=== PATIENT | female | born 1945 | race Caucasian/White ===

== ENCOUNTER → 2016-11-28 | Day surgery (SDC) | payer OTHER ==
[~2016-11-28] MED LIST: ACETAMINOPHEN 1000 MG/100 ML VIAL IV ONE; BUPIVACAINE/EPINEPHRINE 0.5% 50 ML VIAL ONE; ISOSULFAN BLUE 50 MG/5 ML VIAL SQ ONE; LACTATED RINGER'S 1000 ML INJ 1,000 ML ONE; LIDOCAINE 1%/EPINEPHrine 1:100,000 SOLN 20 ML VIAL ONE; MIDAZOLAM HCL 2 MG/2 ML VIAL ONE; ONDANSETRON HCL 4 MG/2 ML VIAL IV PUSH ONE; PROPOFOL 200 MG/20 ML AMP IV ONE; ceFAZolin INJ 1,000 MG VIAL ONE
--- NOTE | 2016-11-28 16:55 | TN ---
cc: BETZY VALADEZ MD, JOSEPH D. M.D. DATE OF SURGERY 11/28/2016 DATE OF PROCEDURE 11/28/2016 PREOPERATIVE DIAGNOSIS Right-sided breast cancer lower outer quadrant. POSTOPERATIVE DIAGNOSIS Right-sided breast cancer lower outer quadrant. PROCEDURES PERFORMED 1. Injection of Lymphazurin blue dye for lymphatic mapping to identify sentinel nodes times two. 2. Right needle-localized segmental mastectomy treatment of breast cancer to obtain clear margins. 3. Identification of two sentinel nodes right axillary region ex vivo count of 5635 and number two node 352 and a third node that was slightly enlarged. None were blue. 4. Application of intraoperative radiation therapy device 4 cm device with radiologic 5) Ultrasound confirmation of adequate margins for intraoperative radiation. ANESTHESIA General. SURGEON Dr. Fishman. Health Aid surgeon Ms Tiff BERMUDEZ The CALL CENTER PROFESSIONAL was present from beginning to the end of the case assisting in all portions of the procedure. It was necessary to have this individual in the room to assist in the above surgical procedure. The surgical procedure was assisted by the CALL CENTER PROFESSIONAL. The CALL CENTER PROFESSIONAL presence was necessary throughout the case for appropriate retraction, dissection, visualization, and resection of the important anatomical structures during the surgical procedure. The CALL CENTER PROFESSIONAL was assisting throughout the entirety of the operation. The skill set of the CALL CENTER PROFESSIONAL is medically and surgically necessary to safely complete the surgical procedure. During the surgical case, the operating room lead manufacturing technician was working instrument table and passing instruments to the attending surgeon and CALL CENTER PROFESSIONAL. The CALL CENTER PROFESSIONAL was directly assisting the operating surgeon and involved in the technical aspects of the surgical case. RADIATION THERAPIST Dr. Simon. INDICATIONS This is a pleasant 71-year-old female who was found have a right-sided breast cancer. Plans were made for above. PROCEDURE DETAILS The patient taken to the operating room and placed in the supine position. After anesthesia a time-out is done. The guidewire had been previously placed by radiology. We inject blue dye into the track sylvia in the right breast in the lower outer quadrant. A hot spot is found in the right axillary region. After prepping and draping we then make a curvilinear incision in the axillary region identifying two sentinel nodes that are #1 with an ex vivo count 5635. Number two with an ex vivo count of 352. These were not blue. A third node is slightly enlarged without a count. These were sent down as right axillary nodes. We then close the skin with a 4-0 Vicryl. We then performed the segmental mastectomy to the lower outer quadrant of the right breast by making a curvilinear incision at the inferior aspect of the breast where the guidewire was coursing inferior to superior in a lateral to medial direction. We obtain clear margins circumferentially around the guidewire. This is sent down to radiology with confirmation. We then sized the cavity and felt that a 4 cm intraoperative radiation therapy device would fit nicely. A pursestring suture is used for tissue mobilization to cover the anterior aspect of the radiation device. It was then sterilely draped and then placed in to the breast cavity. Adequate margins were obtained using ultrasound to four quadrants superior, inferior, medial and lateral confirming greater than 1 cm margins circumferentially for radiation therapy. The patient was then left in the operating room with Dr. iSmon applying the intraoperative radiation therapy. See the documentation. After the radiation therapy is completed the pursestring suture is removed, the catheter is removed, the area was irrigated. Hemostasis is double checked. We then close the deep layer with a 3-0 Vicryl and skin was reapproximated with 4-0 Vicryl. Steri-Strips applied. Sterile bandage applied. The patient tolerated the procedure well, had no immediate postop complications. Karri Fishman MD JDB/KK /4:22 PM /4:43 PM [place]
--- NOTE | 2016-11-30 09:23 | RADONCOP ---
OPERATIVE REPORT DATE OF SURGERY: 11/29/2016 REFERRING PHYSICIAN: Karri Fishman PREOPERATIVE DIAGNOSIS: C50.811 - Malignant neoplasm of overlapping sites of right female breast, Diagnosed 11/07/2016 (Active) POSTOPERATIVE DIAGNOSIS: C50.811 - Malignant neoplasm of overlapping sites of right female breast, Diagnosed 11/07/2016 (Active) PROCEDURE: Intraoperative Radiation Therapy to the . SURGEON: Karri Fishman ANESTHESIA: General ESTIMATED BLOOD LOSS: Minimal INDICATIONS: Patient is a 71 year old female presenting with . She has elected to receive targeted intraoperative radiation therapy to the . DESCRIPTION OF PROCEDURE: Patient was taken to the operating room and placed on the table in the supine position. Following induction of general anesthesia, the and arm were prepped and draped sterilely. Ultrasound was performed of the breast to document the location of the breast malignancy. The wound was prepared for intraoperative radiation therapy. Based on the diameter of the cavity, a 4.0cm radiation applicator was selected for the delivery of intraoperative radiation therapy. The applicator was then sterilely mounted onto the Intrabeam Stand. Retracting sutures were placed within the skin to be used to retract the skin edges away from the radiation source. The 4.0cm Radiation applicator was then sterilely inserted into the wound. The superficial purse-string suture was tied down. Ultrasound was performed of the breast to document conformity of the surgical margins and the distance from the applicator to the skin surface (1.2cm). The retracting sutures were then secured and a moistened lap pad was placed on the skin surface, followed by an external radiation barrier. Intraoperative radiotherapy was then initiated by the Radiation Oncologist. Total treatment time was 25 minutes. Upon completion of the intraoperative radiotherapy treatment, the radiation applicator, purse-string sutures and retracting sutures were removed from the wound. The wound was once again irrigated. Hemostasis was confirmed. The patient was then turned back over to the surgeon, Karri Fishman in stable condition for completion of surgical procedure. Izaiah Meek MD 11/30/2016 9:23:23 AM This report was verified and signed electronically [facility] [address] [place] [address] RADIATION ONCOLOGY OPERATIVE REPORT Date: 11/28/2016 Patient Name: Helen Pina
--- NOTE | 2016-11-30 09:24 | RADONCENDT ---
END OF TREATMENT SUMMARY PRIMARY REFERRING PHYSICIAN: Karri Fishman CC: Karri Fishman DIAGNOSIS: Primary C50.811 - Malignant neoplasm of overlapping sites of right female breast, Diagnosed 11/07/2016 (Active) PRESCRIPTION AND TREATMENT: 2000 cGy to surface of applicator- TREATED PLAN FRACTIONS AND DATES: Course: One fraction delivered on 11/29/2016 TOLERANCE: Patient completed treatment without complications. FOLLOW UP PLAN: Patient to be seen in 6 weeks. Iaziah Meek MD 11/30/2016 9:23:38 AM This report was verified and signed electronically [facility] [address] [place] [address] RADIATION ONCOLOGY END OF TREATMENT SUMMARY Date: 11/28/2016 Patient Name: Helen Pina Date of : 1945 Age: 71 Sex: Female
== END | disposition home or self-care (01) ==
LOC: ESDC 07:42
PROVIDERS: ATTEND Surgery
DX: C50.811 Malignant neoplasm of overlapping sites of right female breast (principal)
CPT/HCPCS: 00400; 01610; 19298; 19301; 38525; 38792; 77290; 77300; 77334; 77370; 77424; 88307; J0131; J0690; J2250; J2405; J3010; J7120; Q9968; 77469